=== PATIENT | female | born 1985 | race Caucasian/White ===

== ENCOUNTER 2018-09-16 10:53 | Day surgery (SDC) | payer OTHER ==
[~2018-09-16] VITALS: Ht 160 cm; Wt 52.8 kg
[2018-09-16] MEDS ORDERED: ALBU18HF INHALATION (11:19)
--- NOTE | 2018-09-16 11:29 | HPN ---
Date/Time of Note Date/Time of Note DATE: 09/16/18 TIME: 11:29 Interval H&P Admission Note Pt. seen H&P reviewed: No system changes DUSTIN ESTRADA MD Sep 16, 2018 11:29
[2018-09-16] MEDS ORDERED: POLYMYXIN/BACITRACIN 1L IRRIG IRR ONE (11:30)
[2018-09-16] MEDS ORDERED: CEFAZOLIN 1 GM/50 ML (PMX) 50 ML IVPB SCH (11:30)
[2018-09-16] MEDS ORDERED: SOD CHLORIDE 0.9% 1,000 ML IV SCH (11:30)
[2018-09-16 12:01] VITALS: BP 112/72; PULSE 93; RESP 16
[2018-09-16 12:04] VITALS: Ht 160 cm; Wt 52.8 kg
[2018-09-16] MEDS ORDERED: FENTAnyl 50 MCG/ML VIAL ONE (13:32)
[2018-09-16] MEDS ORDERED: LIDOCAINE 1% (MDV) 20 ML INJ ONE (13:32)
[2018-09-16] MEDS ORDERED: MIDAZOLAM 1 MG/ML 2 ML INJ ONE ×2 (13:32)
[2018-09-16] MEDS ORDERED: CEFAZOLIN 1 GM/50 ML (PMX) 50 ML IVPB ONE (13:33)
[2018-09-16] MEDS ORDERED: HEPARIN 1000 UNITS/ML 10 ML INJ ONE (13:48)
[2018-09-16 15:11] VITALS: BP 110/80; PULSE 78; RESP 16
[2018-09-16 15:16] VITALS: BP 110/75; PULSE 80; RESP 28
[2018-09-16 15:21] VITALS: BP 105/75; PULSE 74; RESP 22
[2018-09-16 15:26] VITALS: BP 104/52; PULSE 88; RESP 24
[2018-09-16] MEDS ORDERED: HYDROCODONE/APAP (5/325) TAB PO PRN (15:30)
[2018-09-16 15:31] VITALS: BP 110/65; PULSE 75; RESP 22
== END 2018-09-20 08:05 | disposition home or self-care (01) ==
LOC: SDS 10:53
PROVIDERS: ATTEND Internal Medicine Hematology & Oncology
DX: C50.912 Malignant neoplasm of unspecified site of left female breast (principal)
CPT/HCPCS: 36561; 76942; C1788; J0690; J1644; J2250; J3010; Z7610

== ENCOUNTER → 2018-09-22 | Outpatient (CLI) | payer OTHER ==
[~2018-09-22] MED LIST: ALBU18HF INHALATION
== END | disposition home or self-care (01) ==
LOC: NUC 10:26 → EDUNIT# 11:00
PROVIDERS: ATTEND Internal Medicine Hematology & Oncology
DX: C50.919 Malignant neoplasm of unspecified site of unspecified female breast (principal)
CPT/HCPCS: 78472; A9560; Z7610